=== PATIENT | female | born 1955 | race Caucasian/White ===

== ENCOUNTER → 2018-08-27 | Day surgery (SDC) | payer OTHER ==
--- NOTE | 2018-08-28 15:33 | PATH ---
Cytology Non-Gynecological Report Patient Name: PAULA TURNER [facility]. Rec. #: [id number] /Age/Gender: 1955 (Age: 63) / F Account: [id number] Location: RADIOLOGY INTER Taken: 08/27/2018 Received: 08/27/2018 Reported: 08/28/2018 Physicians: Kasia Lockett M.D. Specimen(s) Received THYROID FNA Clinical History Isthmus nodule Final Diagnosis THYROID, ISTHMUS, FINE NEEDLE ASPIRATION: SATISFACTORY FOR EVALUATION. [place] CATEGORY IV, SUSPICIOUS FOR FOLLICULAR NEOPLASM. FOLLICULAR CELLS DISPERSED CELLULAR FRAGMENTS AND MICROFOLLICLES. FOCAL ATYPICAL FOLLICULAR CELLS WITH NUCLEAR ENLARGEMENT, NUCLEAR GROOVES, AND CROWDING. Comment: The differential diagnoses include follicular adenoma, follicular thyroid carcinoma, follicular variant of papillary thyroid carcinoma, and noninvasive follicular thyroid neoplasm with papillary-like nuclear features (NIFTP). Recommend correlation with clinical findings and follow up as clinically indicated. Electronically Signed Ron Calle M.D. Gross Description The first Received are eight direct smears, four of which are air-dried and Diff-Quik stained, and four of which are alcohol fixed and Pap stained. Also received is 50 ml of bloody formalin from which one cellblock is prepared.
== END | disposition home or self-care (01) ==
LOC: JRADIR 10:03
PROVIDERS: ATTEND Internal Medicine
PROC: 0G9K3ZX Drainage of Thyroid Gland, Percutaneous Approach, Diagnostic (ICD-10-PCS; principal; 2018-08-27)
DX: D44.0 Neoplasm of uncertain behavior of thyroid gland (principal)
CPT/HCPCS: 76942; 88173; 88305-TC

== ENCOUNTER 2020-11-01 14:41 | Inpatient (IN) | payer OTHER ==
[2020-11-01 14:53] VITALS: BMI 27.4
[2020-11-01] MEDS ORDERED: ACETAMINOPHEN/CAFFEINE/BUTALBITAL 1 TAB PO ONE (15:32)
[2020-11-01] MEDS ORDERED: ACETAMINOPHEN/CAFFEINE/BUTALBITAL 1 TAB ONE (15:40)
[2020-11-01 15:48] LABS: BASO % 0.8 % (0-2.0); EOS % 0.5 % (0-4.5); HEMATOCRIT 43.8 % (32.4-45.2); HEMOGLOBIN 15.2 GM/dL (10.7-15.3); LYMPH % 24.3 % (8-40); MCH 31.4 pg (25.7-33.7); MCHC 34.6 g/dl (32.0-36.0); MEAN CELL VOLUME 90.6 fl (80-96); MEAN PLT VOLUME 8.2 fl (7.5-11.1); MONO % 8.5 % (3.8-10.2); NEUT % 65.9 % (42.8-82.8); PLATELET COUNT 236 K/MM3 (134-434); RBC 4.83 M/mm3 (3.60-5.2); RDW 14.6 % (11.6-15.6); WHITE BLOOD COUNT 11.2 K/mm3 (4.0-10.0)
[2020-11-01 16:07] LABS: POTASSIUM 4.3 mmol/L (3.5-5.1)
[2020-11-01 16:09] LABS: ALBUMIN 3.5 g/dl (3.4-5.0); CALCIUM 10.2 mg/dL (8.5-10.1)
[2020-11-01 16:10] LABS: BLOOD UREA NITROGEN 31.2 mg/dL (7-18)
[2020-11-01 16:13] LABS: CREATININE 2.6 mg/dL (0.55-1.3)
[2020-11-01 16:14] LABS: BILIRUBIN,TOTAL 0.8 mg/dL (0.2-1); TOT PROT 6.3 g/dl (6.4-8.2)
[2020-11-01] MEDS ORDERED: SODIUM CHLORIDE 0.9% 500 ML INFUS.BAG IV ONE (16:17)
[2020-11-01] MEDS: LACTATED RINGERS SOLUTION 1,000 ML/1,000 ML INFUS.BAG IV SCH (17:42)
[2020-11-01] MEDS: INSULIN SLIDING SCALE (NOVOLOG) 1 VIAL SQ SCH (22:53)
[2020-11-02] MEDS ORDERED: ACETAMINOPHEN 1000 MG/100 ML VIAL (NON FORMULARY) IVPB ONE (02:30)
[2020-11-02] MEDS: HEPARIN NA (PORCINE) 5,000 UNITS/ML 1ML VIAL SQ SCH ×4 (06:38→21:51)
[2020-11-02] MEDS: INSULIN SLIDING SCALE (NOVOLOG) 1 VIAL SQ SCH ×4 (06:38→21:52)
[2020-11-02 09:02] LABS: BASO % 0.3 % (0-2.0); EOS % 1.1 % (0-4.5); HEMATOCRIT 42.9 % (32.4-45.2); HEMOGLOBIN 14.8 GM/dL (10.7-15.3); LYMPH % 35.6 % (8-40); MCH 31.7 pg (25.7-33.7); MCHC 34.6 g/dl (32.0-36.0); MEAN CELL VOLUME 91.5 fl (80-96); MEAN PLT VOLUME 8.8 fl (7.5-11.1); MONO % 7.1 % (3.8-10.2); NEUT % 55.9 % (42.8-82.8); PLATELET COUNT 196 K/MM3 (134-434); RBC 4.68 M/mm3 (3.60-5.2); RDW 14.8 % (11.6-15.6); WHITE BLOOD COUNT 7.6 K/mm3 (4.0-10.0)
[2020-11-02 09:12] LABS: POTASSIUM 4.5 mmol/L (3.5-5.1)
[2020-11-02 09:21] LABS: BLOOD UREA NITROGEN 37.1 mg/dL (7-18); CALCIUM 9.4 mg/dL (8.5-10.1); MAGNESIUM 1.9 mg/dL (1.8-2.4)
[2020-11-02 09:23] LABS: BILIRUBIN,TOTAL 0.9 mg/dL (0.2-1); CREATININE 2.7 mg/dL (0.55-1.3); PHOSPHOROUS 4.9 mg/dL (2.5-4.9); TOT PROT 5.7 g/dl (6.4-8.2)
[2020-11-02] MEDS ORDERED: valACYclovir HCL 500 MG TABLET (FP) PO SCH (10:00)
[2020-11-02] MEDS ORDERED: GABAPENTIN 100 MG CAPSULE PO SCH (10:00)
[2020-11-02] MEDS: amLODIPine BESYLATE 10 MG TABLET (FP) PO SCH (12:00)
[2020-11-02] MEDS: GABAPENTIN 300 MG CAPSULE PO SCH ×2 (13:33→21:51)
[2020-11-02 15:50] LABS: HIV INTERPRETATION NEGATIVE (NEGATIVE)
[2020-11-02] MEDS ORDERED: PT OWN MED DRAWER 7, Y5N ONE (16:50)
[2020-11-02] MEDS: LACTATED RINGERS SOLUTION 1,000 ML/1,000 ML INFUS.BAG IV SCH (18:47)
[2020-11-02] MEDS: LATANOPROST 0.005% OPHTH SOLN 2.5ML BOTTLE OU SCH (22:00)
[2020-11-02] MEDS: TIMOLOL 0.5% OPHTHALMIC SOL 5 ML BOTTLE OU SCH (22:00)
[2020-11-02 23:06] LABS: URINE APPEARANCE CLEAR; URINE BILIRUBIN NEGATIVE (NEGATIVE); URINE COLOR YELLOW; URINE GLUCOSE (UA) 1+ (NEGATIVE); URINE KETONE NEGATIVE (NEGATIVE); URINE LEUK ESTERASE NEGATIVE (NEGATIVE); URINE NITRITE NEGATIVE (NEGATIVE); URINE PROTEIN NEGATIVE (NEGATIVE); URINE UROBILINOGEN 0.2 mg/dL (0.2-1.0)
[2020-11-03] MEDS: GABAPENTIN 300 MG CAPSULE PO SCH ×3 (06:10→22:23)
[2020-11-03] MEDS: HEPARIN NA (PORCINE) 5,000 UNITS/ML 1ML VIAL SQ SCH ×3 (06:10→22:21)
[2020-11-03] MEDS: INSULIN SLIDING SCALE (NOVOLOG) 1 VIAL SQ SCH ×4 (06:10→22:23)
[2020-11-03] MEDS: LACTATED RINGERS SOLUTION 1,000 ML/1,000 ML INFUS.BAG IV SCH ×2 (07:47→16:53)
[2020-11-03] MEDS ORDERED: INSULIN (LEVEMIR) 100 UNITS/ML UNITS SQ ONE ×2 (08:47→11:30)
[2020-11-03] MEDS ORDERED: PT OWN MED DRAWER 7, Y5N ONE (09:21)
[2020-11-03 09:24] LABS: BASO % 0.6 % (0-2.0); EOS % 1.5 % (0-4.5); HEMATOCRIT 41.8 % (32.4-45.2); HEMOGLOBIN 14.1 GM/dL (10.7-15.3); LYMPH % 46.3 % (8-40); MCH 30.9 pg (25.7-33.7); MCHC 33.8 g/dl (32.0-36.0); MEAN CELL VOLUME 91.3 fl (80-96); MEAN PLT VOLUME 9.2 fl (7.5-11.1); MONO % 7.7 % (3.8-10.2); NEUT % 43.9 % (42.8-82.8); PLATELET COUNT 197 K/MM3 (134-434); RBC 4.58 M/mm3 (3.60-5.2); RDW 14.9 % (11.6-15.6); WHITE BLOOD COUNT 7.1 K/mm3 (4.0-10.0)
[2020-11-03] MEDS: amLODIPine BESYLATE 10 MG TABLET (FP) PO SCH (09:38)
[2020-11-03 10:18] LABS: CHOLESTEROL 223 mg/dL (50-200); TRIGLYCERIDES 203 mg/dL (0-150)
[2020-11-03 10:19] LABS: LDL CHOLESTEROL (ONLY SJRH) 144 mg/dL (5-100)
[2020-11-03 10:21] LABS: HDL CHOLESTEROL 55 mg/dL (40-60)
[2020-11-03 10:25] LABS: POTASSIUM 4.1 mmol/L (3.5-5.1)
[2020-11-03 10:46] LABS: CALCIUM 9.6 mg/dL (8.5-10.1)
[2020-11-03 10:47] LABS: ALBUMIN 3.2 g/dl (3.4-5.0); BLOOD UREA NITROGEN 30.6 mg/dL (7-18); MAGNESIUM 2.1 mg/dL (1.8-2.4)
[2020-11-03 10:50] LABS: PHOSPHOROUS 4.4 mg/dL (2.5-4.9)
[2020-11-03 10:53] LABS: BILIRUBIN,TOTAL 0.7 mg/dL (0.2-1)
[2020-11-03] MEDS ORDERED: INSULIN (NOVOLOG) ASPART 100 UNITS/ML 10ML VIAL ONE (11:28)
[2020-11-03] MEDS: TIMOLOL 0.5% OPHTHALMIC SOL 5 ML BOTTLE OU SCH ×2 (12:26→22:23)
[2020-11-03] MEDS: ACETAMINOPHEN 325 MG TABLET (FP) PO PRN (16:51)
[2020-11-03] MEDS: LATANOPROST 0.005% OPHTH SOLN 2.5ML BOTTLE OU SCH (22:23)
[2020-11-03] MEDS: ATORVASTATIN CA 40 MG TABLET (FP) PO SCH (22:23)
[2020-11-04] MEDS: HEPARIN NA (PORCINE) 5,000 UNITS/ML 1ML VIAL SQ SCH ×3 (06:38→22:45)
[2020-11-04] MEDS: INSULIN SLIDING SCALE (NOVOLOG) 1 VIAL SQ SCH ×4 (06:39→22:47)
[2020-11-04] MEDS: GABAPENTIN 300 MG CAPSULE PO SCH ×3 (06:39→22:44)
[2020-11-04 09:09] LABS: HEMOGLOBIN 14.2 GM/dL (10.7-15.3); MCHC 35.6 g/dl (32.0-36.0); MEAN PLT VOLUME 8.8 fl (7.5-11.1); PLATELET COUNT 214 K/MM3 (134-434); RBC 4.45 M/mm3 (3.60-5.2); RDW 14.6 % (11.6-15.6); WHITE BLOOD COUNT 5.6 K/mm3 (4.0-10.0)
[2020-11-04] MEDS: ASPIRIN 81 MG CHEWABLE TABLETS PO SCH (09:20)
[2020-11-04] MEDS: ACETAMINOPHEN 325 MG TABLET (FP) PO PRN (09:20)
[2020-11-04] MEDS: amLODIPine BESYLATE 10 MG TABLET (FP) PO SCH (09:20)
[2020-11-04] MEDS: TIMOLOL 0.5% OPHTHALMIC SOL 5 ML BOTTLE OU SCH ×2 (09:23→22:37)
[2020-11-04 09:50] LABS: POTASSIUM 4.1 mmol/L (3.5-5.1)
[2020-11-04 10:05] LABS: BILIRUBIN,TOTAL 0.7 mg/dL (0.2-1)
[2020-11-04 10:06] LABS: ALBUMIN 3.2 g/dl (3.4-5.0)
[2020-11-04 10:08] LABS: CALCIUM 9.6 mg/dL (8.5-10.1); CREATININE 1.3 mg/dL (0.55-1.3); MAGNESIUM 1.6 mg/dL (1.8-2.4)
[2020-11-04 10:09] LABS: PHOSPHOROUS 5.4 mg/dL (2.5-4.9)
[2020-11-04] MEDS ORDERED: SIMETHICONE 80 MG TAB.CHEW (FP) PO ONE (11:00)
[2020-11-04] MEDS ORDERED: LIDOCAINE 5% TOPICAL PATCH TP ONE (11:05)
[2020-11-04] MEDS ORDERED: MAGNESIUM 1GM/D5W 100ML - 100 ML IVPB IVPB ONE (11:50)
[2020-11-04] MEDS ORDERED: INSULIN (LEVEMIR) 100 UNITS/ML UNITS SQ ONE (12:00)
[2020-11-04] MEDS ORDERED: INSULIN (NOVOLOG) ASPART 100 UNITS/ML 10ML VIAL ONE (16:43)
[2020-11-04] MEDS ORDERED: INSULIN (LEVEMIR) 100 UNITS/ML UNITS SQ SCH ×2 (22:00)
[2020-11-04] MEDS ORDERED: LIDOCAINE PATCH REMOVAL MC SCH (22:00)
[2020-11-04] MEDS: LATANOPROST 0.005% OPHTH SOLN 2.5ML BOTTLE OU SCH (22:37)
[2020-11-04] MEDS: ATORVASTATIN CA 40 MG TABLET (FP) PO SCH (22:44)
[2020-11-04] MEDS: LACTATED RINGERS SOLUTION 1,000 ML/1,000 ML INFUS.BAG IV SCH (22:53)
[2020-11-05] MEDS: INSULIN SLIDING SCALE (NOVOLOG) 1 VIAL SQ SCH ×4 (06:50→21:34)
[2020-11-05] MEDS: HEPARIN NA (PORCINE) 5,000 UNITS/ML 1ML VIAL SQ SCH ×3 (06:51→21:39)
[2020-11-05] MEDS: GABAPENTIN 300 MG CAPSULE PO SCH ×3 (06:51→21:39)
[2020-11-05 08:54] LABS: BASO % 0.7 % (0-2.0); EOS % 1.8 % (0-4.5); HEMATOCRIT 41.1 % (32.4-45.2); HEMOGLOBIN 14.1 GM/dL (10.7-15.3); LYMPH % 47.2 % (8-40); MCHC 34.4 g/dl (32.0-36.0); MEAN CELL VOLUME 90.2 fl (80-96); MEAN PLT VOLUME 8.1 fl (7.5-11.1); NEUT % 44.3 % (42.8-82.8); PLATELET COUNT 241 K/MM3 (134-434); RBC 4.56 M/mm3 (3.60-5.2); RDW 14.4 % (11.6-15.6)
[2020-11-05] MEDS ORDERED: PT OWN MED DRAWER 7, Y5N ONE (09:17)
[2020-11-05] MEDS: ASPIRIN 81 MG CHEWABLE TABLETS PO SCH (09:26)
[2020-11-05] MEDS: amLODIPine BESYLATE 10 MG TABLET (FP) PO SCH (09:26)
[2020-11-05] MEDS: TIMOLOL 0.5% OPHTHALMIC SOL 5 ML BOTTLE OU SCH ×2 (09:26→21:38)
[2020-11-05 09:29] LABS: POTASSIUM 3.9 mmol/L (3.5-5.1)
[2020-11-05 09:32] LABS: ALBUMIN 3.5 g/dl (3.4-5.0); BLOOD UREA NITROGEN 19.1 mg/dL (7-18); CALCIUM 9.3 mg/dL (8.5-10.1); MAGNESIUM 1.6 mg/dL (1.8-2.4)
[2020-11-05 09:35] LABS: CREATININE 1.1 mg/dL (0.55-1.3)
[2020-11-05 09:36] LABS: PHOSPHOROUS 5.1 mg/dL (2.5-4.9)
[2020-11-05 09:37] LABS: BILIRUBIN,TOTAL 0.8 mg/dL (0.2-1); TOT PROT 6.4 g/dl (6.4-8.2)
[2020-11-05] MEDS: LACTATED RINGERS SOLUTION 1,000 ML/1,000 ML INFUS.BAG IV SCH ×2 (14:34→18:19)
[2020-11-05] MEDS ORDERED: INSULIN (NOVOLOG) ASPART 100 UNITS/ML 10ML VIAL ONE (21:24)
[2020-11-05] MEDS ORDERED: BISACODYL 5 MG TABLET.DR (FP) PO ONE (21:35)
[2020-11-05] MEDS: LATANOPROST 0.005% OPHTH SOLN 2.5ML BOTTLE OU SCH (21:39)
[2020-11-05] MEDS: ATORVASTATIN CA 40 MG TABLET (FP) PO SCH (21:39)
[2020-11-05] MEDS ORDERED: MAGNESIUM OXIDE 400 MG TABLET (FP) PO ONE (22:51)
[2020-11-06] MEDS: LACTATED RINGERS SOLUTION 1,000 ML/1,000 ML INFUS.BAG IV SCH ×2 (00:42→10:34)
[2020-11-06] MEDS: INSULIN SLIDING SCALE (NOVOLOG) 1 VIAL SQ SCH ×3 (07:08→17:01)
[2020-11-06] MEDS: HEPARIN NA (PORCINE) 5,000 UNITS/ML 1ML VIAL SQ SCH ×2 (07:17→15:15)
[2020-11-06] MEDS: GABAPENTIN 300 MG CAPSULE PO SCH ×2 (07:17→15:16)
[2020-11-06] MEDS ORDERED: INSULIN (LEVEMIR) 100 UNITS/ML UNITS SQ SCH (08:00)
[2020-11-06] MEDS: amLODIPine BESYLATE 10 MG TABLET (FP) PO SCH (09:30)
[2020-11-06] MEDS: TIMOLOL 0.5% OPHTHALMIC SOL 5 ML BOTTLE OU SCH (09:30)
[2020-11-06] MEDS: ASPIRIN 81 MG CHEWABLE TABLETS PO SCH (09:30)
[2020-11-06 09:47] LABS: BASO % 0.8 % (0-2.0); HEMATOCRIT 39.7 % (32.4-45.2); HEMOGLOBIN 13.7 GM/dL (10.7-15.3); LYMPH % 47.5 % (8-40); MCH 31.5 pg (25.7-33.7); MCHC 34.4 g/dl (32.0-36.0); MEAN CELL VOLUME 91.6 fl (80-96); MONO % 6.1 % (3.8-10.2); NEUT % 43.6 % (42.8-82.8); PLATELET COUNT 220 K/MM3 (134-434); RBC 4.34 M/mm3 (3.60-5.2); RDW 14.4 % (11.6-15.6)
[2020-11-06 10:20] LABS: CALCIUM 9.1 mg/dL (8.5-10.1)
[2020-11-06 10:21] LABS: BLOOD UREA NITROGEN 17.1 mg/dL (7-18); MAGNESIUM 1.5 mg/dL (1.8-2.4)
[2020-11-06 10:24] LABS: PHOSPHOROUS 4.1 mg/dL (2.5-4.9)
[2020-11-06 10:32] LABS: ALBUMIN 3.2 g/dl (3.4-5.0)
[2020-11-06 10:35] LABS: BILIRUBIN,DIRECT 0.2 mg/dL (0.0-0.2)
[2020-11-06 10:36] LABS: BILIRUBIN,TOTAL 0.7 mg/dL (0.2-1); TOT PROT 5.9 g/dl (6.4-8.2)
[2020-11-06 15:50] VITALS: BP 131/77; PULSE 73; TEMP 97.4
[2020-11-06] MEDS ORDERED: MAGNESIUM SULF 50% (8.12 MEQ/2 ML-1 GM VIAL) IVPB ONE (17:09)
== END 2020-11-06 20:12 | disposition home or self-care (01) | DRG 199 ==
LOC: JER 14:41 → JERBED 17:28 → J6S 23:26
PROVIDERS: ADMIT Student in an Organized Health Care Education/Training Program; ATTEND Internal Medicine
DX: I16.1 Hypertensive emergency (principal); T36.7X5A Adverse effect of antifungal antibiotics, systemically used, initial encounter; R74.01 Elevation of levels of liver transaminase levels; E78.5 Hyperlipidemia, unspecified; K76.0 Fatty (change of) liver, not elsewhere classified; B02.9 Zoster without complications; N17.9 Acute kidney failure, unspecified; E11.40 Type 2 diabetes mellitus with diabetic neuropathy, unspecified; E83.42 Hypomagnesemia
CPT/HCPCS: 36415; 70450-TC; 76775-TC; 76856-TC; 80048; 80053; 80061; 80074; 80076; 81003; 82043; 82436; 82570; 82962; 83036; 83721; 83735; 84100; 84133; 84300; 84443; 85025; 85027; 87205; 87389; 93005; 93010; 99285-25; C9803; J0131; J1644; U0003

== ENCOUNTER 2021-01-18 16:47 | Emergency (ER) | payer OTHER ==
[2021-01-18 17:07] VITALS: BP 158/81; PULSE 113; TEMP 98.5; BMI 24.7
[2021-01-18] MEDS ORDERED: ACETAMINOPHEN 500 MG TABLET (FP) PO ONE (17:23)
[2021-01-18] MEDS ORDERED: SODIUM CHLORIDE 1,000 ML IV STA (17:23)
[2021-01-18] MEDS ORDERED: METOCLOPRAMIDE HCL INJECTION 10 MG/2 ML VIAL IVPUSH ONE (17:23)
[2021-01-18] MEDS ORDERED: METOCLOPRAMIDE HCL INJECTION 10 MG/2 ML VIAL ONE (17:43)
[2021-01-18] MEDS ORDERED: ACETAMINOPHEN 500 MG TABLET (FP) ONE (18:05)
== END 2021-01-18 19:42 | disposition home or self-care (01) ==
LOC: JER 16:47
PROC: 3E033GC Introduction of Other Therapeutic Substance into Peripheral Vein, Percutaneous Approach (ICD-10-PCS; principal; 2021-01-18)
PROC: 3E033GC Introduction of Other Therapeutic Substance into Peripheral Vein, Percutaneous Approach (ICD-10-PCS; 2021-01-18)
PROC: 3E0337Z Introduction of Electrolytic and Water Balance Substance into Peripheral Vein, Percutaneous Approach (ICD-10-PCS; 2021-01-18)
DX: T50.Z95A Adverse effect of other vaccines and biological substances, initial encounter (principal)
CPT/HCPCS: 99284-25

== ENCOUNTER → 2022-02-19 | Day surgery (SDC) | payer OTHER | END | disposition home or self-care (01) | LOC: JRADIR 08:47 | PROVIDERS: ATTEND Internal Medicine Endocrinology, Diabetes & Metabolism | PROC: 0G9H3ZX Drainage of Right Thyroid Gland Lobe, Percutaneous Approach, Diagnostic (ICD-10-PCS; principal; 2022-02-19) | DX: E04.1 Nontoxic single thyroid nodule (principal) | CPT/HCPCS: 10005; 76942; 88173; 88305-TC ==

== ENCOUNTER 2022-06-27 04:04 | Day surgery (SDC) | payer OTHER ==
[2022-06-26 14:53] VITALS: BMI 25.6
[2022-06-27 13:45] VITALS: BP 150/49; PULSE 62; RESP 19
[2022-06-27 15:29] VITALS: TEMP 98
== END 2022-06-27 13:45 | disposition home or self-care (01) ==
LOC: JASU-ENDO 04:04
PROVIDERS: ATTEND Internal Medicine Gastroenterology
PROC: 0DBL8ZX Excision of Transverse Colon, Via Natural or Artificial Opening Endoscopic, Diagnostic (ICD-10-PCS; 2022-06-27)
PROC: 0DBN8ZX Excision of Sigmoid Colon, Via Natural or Artificial Opening Endoscopic, Diagnostic (ICD-10-PCS; 2022-06-27)
PROC: 0DBM8ZX Excision of Descending Colon, Via Natural or Artificial Opening Endoscopic, Diagnostic (ICD-10-PCS; 2022-06-27)
PROC: 0DBP8ZX Excision of Rectum, Via Natural or Artificial Opening Endoscopic, Diagnostic (ICD-10-PCS; 2022-06-27)
PROC: 0DBC8ZX Excision of Ileocecal Valve, Via Natural or Artificial Opening Endoscopic, Diagnostic (ICD-10-PCS; 2022-06-27)
PROC: 0DBK8ZX Excision of Ascending Colon, Via Natural or Artificial Opening Endoscopic, Diagnostic (ICD-10-PCS; principal; 2022-06-27 10:45)
DX: Z12.11 Encounter for screening for malignant neoplasm of colon (principal); D12.3 Benign neoplasm of transverse colon; D12.5 Benign neoplasm of sigmoid colon; D12.8 Benign neoplasm of rectum; K63.5 Polyp of colon; K64.8 Other hemorrhoids; K57.30 Diverticulosis of large intestine without perforation or abscess without bleeding; I10 Essential (primary) hypertension; E11.9 Type 2 diabetes mellitus without complications
CPT/HCPCS: 82962; 88305-TC

== ENCOUNTER 2023-11-05 19:23 | Inpatient (IN) | payer OTHER ==
[2023-11-05] MEDS ORDERED: ONDANSETRON 4 MG/2 ML VIAL ONE (21:57)
[2023-11-05] MEDS ORDERED: ACETAMINOPHEN INJECTION 100 ML IVPB ONE (21:57)
[2023-11-05] MEDS: ONDANSETRON 4 MG/2 ML VIAL IVPUSH ONE (23:13)
[2023-11-05] MEDS: LACTATED RINGERS SOLUTION 1000 ML INFUS.BAG IV ONE (23:13)
[2023-11-05] MEDS: ACETAMINOPHEN 1000 MG/100 ML BAG IVPB ONE (23:14)
[2023-11-05 23:19] LABS: BASO % 0.9 % (0-2.0); EOS % 0.3 % (0-4.5); HEMATOCRIT 33.9 % (32.4-45.2); HEMOGLOBIN 11.6 GM/dL (10.7-15.3); LYMPH % 15.7 % (8-40); MCH 28.6 pg (25.7-33.7); MCHC 34.1 g/dl (32.0-36.0); MEAN CELL VOLUME 83.7 fl (80-96); MEAN PLT VOLUME 6.9 fl (7.5-11.1); MONO % 6.3 % (3.8-10.2); NEUT % 76.8 % (42.8-82.8); PLATELET COUNT 567 10^3/uL (134-434); RBC 4.05 M/mm3 (3.60-5.2); RDW 13.8 % (11.6-15.6); WHITE BLOOD COUNT 11.8 K/mm3 (4.0-10.0)
[2023-11-05 23:25] LABS: INR 1.38 (0.83-1.09)
[2023-11-05 23:28] LABS: ACTIVATED PTT 28.7 SECONDS (25.2-36.5)
[2023-11-05 23:40] LABS: POTASSIUM 4.6 mmol/L (3.5-5.1)
[2023-11-05 23:42] LABS: ALBUMIN 2.4 g/dl (3.4-5.0); BLOOD UREA NITROGEN 10.4 mg/dL (7-18); CALCIUM 8.7 mg/dL (8.5-10.1)
[2023-11-05 23:46] LABS: BILIRUBIN,TOTAL 0.6 mg/dL (0.2-1); CREATININE 0.8 mg/dL (0.55-1.3); TOT PROT 6.9 g/dl (6.4-8.2)
[2023-11-06] MEDS: morphine CARPU-JECT 2 MG/1 ML DISP.SYRIN IVPUSH ONE (00:24)
[2023-11-06] MEDS ORDERED: VANCOMYCIN 1,000 MG in DEXTROSE 5%-WATER - 250 ML IVPB ONE (02:42)
[2023-11-06] MEDS ORDERED: PIPERACILLIN/TAZOB 3.375 GM 3.375 GM/50 ML BAG IVPB ONE (03:23)
[2023-11-06 03:26] LABS: VENOUS O2 SATURATION 92.6 % (70-80); VENOUS PCO2 38.9 mmHg (38-52); VENOUS PH 7.43 (7.310-7.410)
[2023-11-06] MEDS: DEXTROSE 5%-NORMAL SALINE 1,000 ML IV SCH (03:35)
[2023-11-06] MEDS: PIPERACILLIN/TAZOB 3.375 GM 3.375 GM in DEXTROSE 5%-WATER - 50 ML IVPB ONE (03:35)
[2023-11-06 03:41] LABS: PH,URINE 6.5 (5.0-8.0); URINE APPEARANCE CLEAR; URINE BILIRUBIN NEGATIVE (NEGATIVE); URINE COLOR YELLOW; URINE GLUCOSE (UA) NEGATIVE (NEGATIVE); URINE KETONE NEGATIVE (NEGATIVE); URINE LEUK ESTERASE NEGATIVE (NEGATIVE); URINE NITRITE NEGATIVE (NEGATIVE); URINE PROTEIN NEGATIVE (NEGATIVE); URINE UROBILINOGEN 0.2 mg/dL (0.2-1.0)
[2023-11-06] MEDS: VANCOMYCIN/WATER FOR INJ (PEG) 1,000 MG/200 ML BAG IVPB ONE (04:48)
[2023-11-06 05:03] VITALS: BMI 25.8
[2023-11-06] MEDS: INSULIN ASPART SLIDING SCALE (NOVOLOG) 1 VIAL SQ SCH (06:14)
[2023-11-06 09:14] LABS: BASO % 1.1 % (0-2.0); EOS % 0.8 % (0-4.5); HEMATOCRIT 36.5 % (32.4-45.2); HEMOGLOBIN 12.1 GM/dL (10.7-15.3); LYMPH % 26.7 % (8-40); MCH 28.5 pg (25.7-33.7); MCHC 33.3 g/dl (32.0-36.0); MEAN CELL VOLUME 85.7 fl (80-96); MEAN PLT VOLUME 7.1 fl (7.5-11.1); MONO % 7.8 % (3.8-10.2); NEUT % 63.6 % (42.8-82.8); PLATELET COUNT 534 10^3/uL (134-434); RBC 4.25 M/mm3 (3.60-5.2); RDW 14.1 % (11.6-15.6); WHITE BLOOD COUNT 9.3 K/mm3 (4.0-10.0)
[2023-11-06 09:33] LABS: POTASSIUM 4.1 mmol/L (3.5-5.1)
[2023-11-06 09:36] LABS: ALBUMIN 2.2 g/dl (3.4-5.0); CALCIUM 8.8 mg/dL (8.5-10.1)
[2023-11-06 09:37] LABS: BLOOD UREA NITROGEN 7.4 mg/dL (7-18); MAGNESIUM 1.9 mg/dL (1.8-2.4)
[2023-11-06 09:38] LABS: CREATININE 0.7 mg/dL (0.55-1.3); PHOSPHOROUS 4.3 mg/dL (2.5-4.9)
[2023-11-06 09:41] LABS: BILIRUBIN,TOTAL 0.6 mg/dL (0.2-1); TOT PROT 6.4 g/dl (6.4-8.2)
[2023-11-06] MEDS ORDERED: ENOXAPARIN NA (PORCINE) 40 MG/0.4 ML DISP.SYRIN SQ SCH (10:00)
[2023-11-06] MEDS: ACETAMINOPHEN 1000 MG/100 ML BAG IVPB PRN (10:56)
[2023-11-06] MEDS ORDERED: INSULIN (NOVOLOG) ASPART 100 UNITS/ML 10ML VIAL ONE (15:39)
[2023-11-07 09:07] LABS: BASO % 0.4 % (0-2.0); EOS % 0.6 % (0-4.5); HEMATOCRIT 32.2 % (32.4-45.2); HEMOGLOBIN 10.8 GM/dL (10.7-15.3); LYMPH % 18.3 % (8-40); MCH 28.6 pg (25.7-33.7); MCHC 33.7 g/dl (32.0-36.0); MEAN CELL VOLUME 84.8 fl (80-96); MEAN PLT VOLUME 7.2 fl (7.5-11.1); NEUT % 74.7 % (42.8-82.8); PLATELET COUNT 490 10^3/uL (134-434); RDW 14.2 % (11.6-15.6)
[2023-11-07 09:17] LABS: INR 1.39 (0.83-1.09); PROTHROMBIN TIME (PATIENT) 16.1 SEC (9.7-13.0)
[2023-11-07 09:44] LABS: POTASSIUM 4.1 mmol/L (3.5-5.1)
[2023-11-07 09:46] LABS: CALCIUM 8.3 mg/dL (8.5-10.1)
[2023-11-07 09:47] LABS: ALBUMIN 1.8 g/dl (3.4-5.0); BLOOD UREA NITROGEN 5.5 mg/dL (7-18); MAGNESIUM 1.8 mg/dL (1.8-2.4)
[2023-11-07 09:50] LABS: BILIRUBIN,TOTAL 0.5 mg/dL (0.2-1); CREATININE 0.6 mg/dL (0.55-1.3); TOT PROT 5.4 g/dl (6.4-8.2)
[2023-11-07] MEDS: amLODIPine BESYLATE 2.5 MG TABLET (FP) PO SCH (10:32)
[2023-11-07] MEDS: ENALAPRIL MALEATE 2.5 MG TABLET PO SCH (10:32)
[2023-11-07] MEDS ORDERED: INSULIN (NOVOLOG) ASPART 100 UNITS/ML 10ML VIAL ONE (21:51)
[2023-11-07] MEDS: HEPARIN NA (PORCINE) 5,000 UNITS/ML 1ML VIAL SQ SCH (22:12)
[2023-11-07] MEDS: ONDANSETRON 4 MG/2 ML VIAL IVPUSH PRN (22:14)
[2023-11-08] MEDS ORDERED: ACETAMINOPHEN 1000 MG/100 ML BAG IVPB PRN (01:56)
[2023-11-08 08:11] LABS: BASO % 0.9 % (0-2.0); EOS % 0.7 % (0-4.5); HEMATOCRIT 36.9 % (32.4-45.2); HEMOGLOBIN 12.2 GM/dL (10.7-15.3); LYMPH % 29.9 % (8-40); MCH 28.3 pg (25.7-33.7); MEAN CELL VOLUME 85.9 fl (80-96); MEAN PLT VOLUME 7.3 fl (7.5-11.1); MONO % 6.3 % (3.8-10.2); NEUT % 62.2 % (42.8-82.8); PLATELET COUNT 582 10^3/uL (134-434); RDW 14.2 % (11.6-15.6); WHITE BLOOD COUNT 8.3 K/mm3 (4.0-10.0)
[2023-11-08 08:26] LABS: INR 1.31 (0.83-1.09); PROTHROMBIN TIME (PATIENT) 15.1 SEC (9.7-13.0)
[2023-11-08 08:32] LABS: POTASSIUM 4.1 mmol/L (3.5-5.1)
[2023-11-08 08:42] LABS: BLOOD UREA NITROGEN 3.5 mg/dL (7-18); CALCIUM 8.9 mg/dL (8.5-10.1); MAGNESIUM 1.7 mg/dL (1.8-2.4)
[2023-11-08 08:45] LABS: CREATININE 0.7 mg/dL (0.55-1.3)
[2023-11-08 08:47] LABS: BILIRUBIN,TOTAL 0.5 mg/dL (0.2-1); TOT PROT 6.2 g/dl (6.4-8.2)
[2023-11-09 08:55] LABS: BASO % 0.3 % (0-2.0); EOS % 0.2 % (0-4.5); HEMATOCRIT 34.7 % (32.4-45.2); LYMPH % 14.3 % (8-40); MCH 27.2 pg (25.7-33.7); MCHC 31.8 g/dl (32.0-36.0); MEAN CELL VOLUME 85.6 fl (80-96); MEAN PLT VOLUME 7.2 fl (7.5-11.1); MONO % 6.5 % (3.8-10.2); NEUT % 78.7 % (42.8-82.8); PLATELET COUNT 466 10^3/uL (134-434); RBC 4.06 M/mm3 (3.60-5.2); RDW 14.4 % (11.6-15.6); WHITE BLOOD COUNT 12.4 K/mm3 (4.0-10.0)
[2023-11-09 09:11] LABS: POTASSIUM 3.7 mmol/L (3.5-5.1)
[2023-11-09 09:13] LABS: INR 1.44 (0.83-1.09); PROTHROMBIN TIME (PATIENT) 16.6 SEC (9.7-13.0)
[2023-11-09 09:20] LABS: CALCIUM 8.3 mg/dL (8.5-10.1)
[2023-11-09 09:21] LABS: ALBUMIN 1.9 g/dl (3.4-5.0); MAGNESIUM 1.5 mg/dL (1.8-2.4)
[2023-11-09 09:24] LABS: CREATININE 0.6 mg/dL (0.55-1.3)
[2023-11-09 09:25] LABS: TOT PROT 5.6 g/dl (6.4-8.2)
[2023-11-09 09:26] LABS: BILIRUBIN,TOTAL 0.8 mg/dL (0.2-1)
[2023-11-09] MEDS: MAGNESIUM OXIDE 400 MG TABLET (FP) PO ONE (10:25)
[2023-11-09 14:57] VITALS: BP 113/53; PULSE 72; RESP 18; TEMP 99.5
== END 2023-11-09 15:20 | disposition short-term general hospital (02) | DRG 376 ==
LOC: JER 19:23 → JERBED 21:45 → J8W 11-06 03:32 → OBSVTOIN 11-07 10:57
PROVIDERS: ADMIT Internal Medicine; ATTEND Nurse Practitioner Family
DX: C49.A0 Gastrointestinal stromal tumor, unspecified site (principal); E11.65 Type 2 diabetes mellitus with hyperglycemia; I10 Essential (primary) hypertension; E03.9 Hypothyroidism, unspecified; E78.5 Hyperlipidemia, unspecified; H40.9 Unspecified glaucoma; R19.09 Other intra-abdominal and pelvic swelling, mass and lump
CPT/HCPCS: 0241U-QW; 36415; 71045-TC-FY; 74177-TC; 74183-TC; 76705-TC; 80053; 81003; 82550; 82803; 82962; 82977; 83036; 83605; 83735; 84100; 84484; 85025; 85610; 85730; 86850; 86900; 86901; 87040; 87086; 87635; 93005; 93010; 99285-25; G0378; J0131; J1644